=== PATIENT | female | born 2000 | race Hispanic/Latino ===

== ENCOUNTER 2022-09-02 21:05 | Emergency (ER) | payer SELFPAY ==
[~2022-09-02] VITALS: Ht 160 cm; Wt 82.1 kg
[2022-09-02 22:57] LABS: STREPTOCOCCUS GRP A ANTIGEN POSITIVE (NEGATIVE)
[2022-09-02 23:08] LABS: INFLUENZAE A&B ANTIGEN (RAPID) NEGATIVE (NEGATIVE)
[2022-09-02] MEDS ORDERED: PENICILLIN V P500 MG PO (23:43)
[2022-09-02] MEDS ORDERED: ONDANSETRON ODT4 MG PO (23:43)
[2022-09-03 00:06] VITALS: BP 117/75; PULSE 92; RESP 18; TEMP 99.7; O2SAT 100
== END 2022-09-03 00:07 | disposition home or self-care (01) ==
LOC: ER 21:17
DX: R50.9 Fever, unspecified (principal); J02.0 Streptococcal pharyngitis; Z20.822 Contact with and (suspected) exposure to COVID-19
CPT/HCPCS: 83518; 87400; 99283; U0002

== ENCOUNTER 2024-05-26 20:26 | Emergency (ER) | payer MEDICARE, OTHER ==
[~2024-05-26] VITALS: Ht 165.1 cm; Wt 78.9 kg
[~2024-05-26 20:26] MED LIST: ONDANSETRON ODT4 MG PO; PENICILLIN V P500 MG PO
[2024-05-26 20:34] VITALS: PULSE 93; RESP 18; TEMP 98.9
[2024-05-26] MEDS: MAGNESIUM/ALUMINUM/SIMETHICONE 30 ML UDC PO STA (21:24)
[2024-05-26] MEDS: LIDOCAINE VISC 2% SOLN 15 ML UDC PO STA (21:24)
[2024-05-26] MEDS: ONDANSETRON HCL INJ 2MG/ML 2ML 2 MG/ML VIAL IV STA (21:24)
[2024-05-26] MEDS: SODIUM CHLORIDE 0.9% 1000ML 1,000 ML IV STA (21:24)
[2024-05-26] MEDS: BELLADONNA ALK/PHENOBARBITAL 5 ML UDC PO ONE (21:24)
[2024-05-26 21:25] LABS: BASOPHILS % 0.3 % (0.0-1.0); EOSINOPHILS # (AUTO) 0.2 (0.0-0.4); EOSINOPHILS % 1.5 % (0.0-6.0); HEMOGLOBIN 12.6 g/dL (12.0-16.0); LYMPHOCYTES # (AUTO) 3.2 (1.0-3.2); LYMPHOCYTES % 24.3 % (18.0-39.1); MEAN CORPUSCULAR HEMOGLOBIN 27.8 pg (28-32); MEAN CORPUSCULAR HGB CONC 33.2 g/dL (31-35); MEAN CORPUSCULAR VOLUME 83.9 fL (81-99); MONOCYTES # (AUTO) 0.7 (0.2-0.8); MONOCYTES % 5.6 % (4.4-11.3); NEUTROPHILS # (AUTO) 8.8 (2.1-6.9); PLATELET COUNT 342 x10e3/uL (140-360); RED BLOOD COUNT 4.53 x10e6/uL (3.6-5.1); RED CELL DISTRIBUTION WIDTH 13.7 % (11.7-14.4)
[2024-05-26 21:46] LABS: ALBUMIN 3.9 g/dL (3.5-5.0); ANION GAP 14.8 mmol/L (8-16); BILIRUBIN,TOTAL 0.3 mg/dL (0.2-1.2); CALCIUM 9.3 mg/dL (8.4-10.2); CREATININE, SERUM 0.78 mg/dL (0.57-1.11); POTASSIUM 3.8 mmol/L (3.5-5.1); TOTAL PROTEIN 7.9 g/dL (6.5-8.1)
[2024-05-26 21:48] LABS: CLARITY,URINE SL CLOUDY (CLEAR); COLOR,URINE YELLOW (YELLOW); PH,URINE 5.5 (5 - 7)
[2024-05-26 21:49] LABS: BILIRUBIN,URINE NEGATIVE (NEGATIVE); GLUCOSE, URINE NEGATIVE (NEGATIVE); KETONES,URINE NEGATIVE (NEGATIVE); LEUKOCYTE ESTERASE ,URINE MODERATE (NEGATIVE); NITRITE,URINE NEGATIVE (NEGATIVE); PREGNANCY TEST, URINE NEGATIVE (NEGATIVE); PROTEIN,URINE DIPSTICK NEGATIVE (NEGATIVE); URINE UROBILINOGEN 0.2 mg/dL (0.2 - 1)
[2024-05-26] MEDS ORDERED: IOPAMIDOL 370 MG/ML 100 ML INFUS..BTL INJ ONE (22:00)
[2024-05-26 22:02] LABS: BACTERIA,URINE FEW /HPF; EPITHELIAL CELLS,URINE MODERATE /LPF; RBC,URINE 0-5 /HPF (0-5)
[2024-05-26] MEDS ORDERED: ONDANSETRON ODT4 MG PO (23:52)
[2024-05-26] MEDS ORDERED: PANTOPRAZOLE SO40 MG PO (23:52)
[2024-05-27 00:04] VITALS: O2SAT 97
[2024-05-27 00:10] VITALS: BP 98/52
== END 2024-05-27 00:12 | disposition home or self-care (01) ==
LOC: ER 20:31
DX: R10.13 Epigastric pain (principal); R11.2 Nausea with vomiting, unspecified; J45.909 Unspecified asthma, uncomplicated
CPT/HCPCS: 36415; 74177; 80053; 81001; 81025; 83690; 85025; 99284; J2405; J7030; Q9967

== ENCOUNTER 2024-09-21 12:26 | Emergency (ER) | payer SELFPAY ==
[~2024-09-21] VITALS: Ht 165.1 cm; Wt 76.2 kg
[~2024-09-21 12:26] MED LIST changes: +PANTOPRAZOLE SO40 MG PO
[2024-09-21 12:34] VITALS: PULSE 81; RESP 18; TEMP 97.6; O2SAT 100
[2024-09-21] MEDS ORDERED: FAMOTIDINE 20 MG TAB ONE (12:53)
[2024-09-21] MEDS: METHYLPREDNISOLONE SOD SUCC 125 MG/2ML VIAL IM ONE (12:54)
[2024-09-21] MEDS: FAMOTIDINE 20 MG TAB PO ONE (12:55)
[2024-09-21] MEDS ORDERED: PREDNISONE20 MG PO (13:01)
[2024-09-21] MEDS ORDERED: FAMOTIDINE20 MG PO (13:02)
[2024-09-21] MEDS ORDERED: DIPHENHYDRAMINE25 MG PO (13:02)
== END 2024-09-21 13:09 | disposition home or self-care (01) ==
LOC: ER 12:52
DX: R21 Rash and other nonspecific skin eruption (principal); T78.40XA Allergy, unspecified, initial encounter; E11.9 Type 2 diabetes mellitus without complications; J45.909 Unspecified asthma, uncomplicated; Z91.018 Allergy to other foods
CPT/HCPCS: 99283; J2919